=== PATIENT | female | born 1970 | race Caucasian/White ===

== ENCOUNTER → 2017-05-27 | Outpatient (CLI) | payer BC ==
--- NOTE | 2017-05-28 07:41 | MAMMOGRAPHY REPORT ---
BILATERAL DIGITAL SCREENING MAMMOGRAM TOMOSYNTHESIS WITH CAD: 05/27/2017 CLINICAL HISTORY: Routine screening. Patient has no complaints. TECHNIQUE: Breast tomosynthesis in addition to standard 2D mammography was performed. Current study was also evaluated with a Computer Aided Detection (CAD) system. COMPARISON: Comparison is made to exams dated: 05/08/2016 mammogram, 12/22/2013 mammogram, 10/15/2012 m ammogram, 07/19/2011 mammogram - [facility], and 06/16/2009. BREAST COMPOSITION: The tissue of both breasts is heterogeneously dense, which may obscure small mas ses. FINDINGS: The parenchymal pattern is unchanged. No developing mass, architectural distortion or clus ter of suspicious microcalcifications is seen in either breast. IMPRESSION: ACR BI-RADS CATEGORY 2: BENIGN There is no mammographic evidence of malignancy. A 1 year screening mammogram is recommended. The pa tient will receive written notification of the results. Approximately 10% of breast cancers are not detected with mammography. A negative mammographic report should not delay biopsy if a clinically suggestive mass is present. Alexa Moore M.D. ay/:05/27/2017 17:53:34 Casino Enforcement Agent: Sally COLMENARES)([place]), [facility] letter sent: Normal 1/2 BI-RADS Code: ACR BI-RADS Category 2: Benign
== END | disposition home or self-care (01) ==
LOC: C.MAMM 08:18
PROVIDERS: ATTEND Obstetrics & Gynecology
DX: Z12.31 Encounter for screening mammogram for malignant neoplasm of breast (principal)

== ENCOUNTER → 2018-02-12 | Outpatient (CLI) | payer BC | END | disposition home or self-care (01) | LOC: C.PAPS 12:20 | PROVIDERS: ATTEND Obstetrics & Gynecology | DX: Z01.419 Encounter for gynecological examination (general) (routine) without abnormal findings (principal) ==

== ENCOUNTER → 2018-03-21 | Outpatient (CLI) | payer BC ==
[2018-03-21 12:56] LABS: BASO % 0.6 %; BASO ABS # 0.04 K/uL (0-0.2); EOS % 5.5 %; EOS ABS # 0.34 K/uL (0-0.5); HEMATOCRIT 39.7 % (37-47); HEMOGLOBIN 13.2 g/dL (12.0-16.0); IG# 0.01 K/uL (0.00-0.02); LYMPH % 27.3 %; LYMPH ABS # 1.69 K/uL (1.2-3.4); MEAN CELL VOLUME 88.8 fL (80-100); MEAN CORPUSCULAR HEMOGLOBIN 29.5 pg (25-34); MEAN CORPUSCULAR HGB CONC 33.2 g/dl (32-36); MEAN PLATELET VOLUME 10.2 fL (7.4-10.4); MONO % 4.4 %; MONO ABS # 0.27 K/uL (0.11-0.59); NEUT ABS # 3.85 K/uL (1.4-6.5); PLATELET COUNT 268 K/uL (130-400); RED CELL DISTRIBUTION WIDTH CV 13.5 % (11.5-14.5); RED CELL DISTRIBUTION WIDTH SD 43.6 fL (36.4-46.3)
[2018-03-21 13:42] LABS: ALT/SGPT 17 U/L (12-78); AST/SGOT 17 U/L (15-37); BLOOD UREA NITROGEN 16 mg/dl (7-18); CALCIUM 8.7 mg/dl (8.5-10.1); CARBON DIOXIDE 28 mmol/L (21-32); CHOLESTEROL 143 mg/dl (0-200); CREATININE 0.87 mg/dl (0.60-1.20); GLUCOSE 81 mg/dl (70-99); POTASSIUM 3.7 mmol/L (3.5-5.1); SODIUM 140 mmol/L (136-145)
[2018-03-21 13:44] LABS: ALKALINE PHOSPHATASE 62 U/L (45-117); LDL CHOLESTEROL CALCULATED 63 mg/dl; TOTAL PROTEIN 7.7 gm/dl (6.4-8.2)
== END | disposition home or self-care (01) ==
LOC: C.LABPBG 07:44
PROVIDERS: ATTEND Internal Medicine
DX: Z00.00 Encounter for general adult medical examination without abnormal findings (principal); Z13.220 Encounter for screening for lipoid disorders; Z13.1 Encounter for screening for diabetes mellitus

== ENCOUNTER → 2018-05-28 | Outpatient (CLI) | payer BC ==
--- NOTE | 2018-05-29 08:09 | MAMMOGRAPHY REPORT ---
BILATERAL DIGITAL SCREENING MAMMOGRAM TOMOSYNTHESIS WITH CAD: 05/28/2018 CLINICAL HISTORY: Routine screening. Patient has no complaints. TECHNIQUE: The study was acquired using full field digital technology and interpreted from soft copy. Tomosynthesis (3D imaging) was done in the CC and MLO projections. A C-view reconstruction was then done. Current study was also evaluated with a Computer Aided Detection (CAD) system. COMPARISON: Comparison is made to exams dated: 05/27/2017 mammogram, 05/08/2016 mammogram, 12/22/2013 m ammogram, 10/15/2012 mammogram, 07/19/2011 mammogram - [facility], and 06/16/2009. BREAST COMPOSITION: The tissue of both breasts is heterogeneously dense, which may obscure small mass es. FINDINGS: There is a 9 mm asymmetry in the superior, posterior left breast on the MLO view that could represent normal overlapping tissue although additional spot compression tomosynthesis views and possible ultr asound are recommended. No other suspicious mass, architectural distortion or cluster of microcalcifications is seen. IMPRESSION: ACR BI-RADS CATEGORY 0: INCOMPLETE EVALUATION: NEED ADDITIONAL IMAGING EVALUATION The 9 mm nodular asymmetry in the superior, posterior left breast on the MLO view needs additional im aging evaluation. The patient will be called to schedule an appointment. Approximately 10% of breast cancers are not detected with mammography. A negative mammographic report should not delay biopsy if a clinically suggestive mass is present. Alexa Moore M.D. ay/:05/28/2018 12:55:48 [employer] Value Added Assessor: Yohana Boateng, [facility] letter sent: Addl Imaging 0 BI-RADS Code: ACR BI-RADS Category 0: Incomplete Evaluation: Need Additional Imaging Evaluation
== END | disposition home or self-care (01) ==
LOC: C.MAMM 08:12
PROVIDERS: ATTEND Obstetrics & Gynecology
DX: Z12.31 Encounter for screening mammogram for malignant neoplasm of breast (principal); N64.89 Other specified disorders of breast

== ENCOUNTER → 2018-06-06 | Outpatient (CLI) | payer BC ==
--- NOTE | 2018-06-06 15:40 | MAMMOGRAPHY REPORT ---
UNILATERAL LEFT DIGITAL DIAGNOSTIC MAMMOGRAM TOMOSYNTHESIS AND TARGETED LEFT ULTRASOUND: 06/06/2018 CLINICAL HISTORY: Callback from screening mammogram for left breast asymmetry. TECHNIQUE: The study was acquired using full field digital technology and interpreted from soft copy. Breast tomosynthesis in addition to standard 2D mammography was performed. Spot compression left CC and MLO 2D and tomosynthesis images were obtained. COMPARISON: Comparison is made to exams dated: 05/28/2018 mammogram, 05/27/2017 mammogram, 05/08/2016 m ammogram, 12/22/2013 mammogram, 10/15/2012 mammogram, and 07/19/2011 mammogram - [facility]ter. BREAST COMPOSITION: The tissue of left breast is heterogeneously dense, which may obscure small ashwini s. FINDINGS: The previously described asymmetry seen within the left superior breast on the MLO view effaces to a baseline appearance on the additional spot compression view. Normal fibroglandular tissue is seen in this region, without evidence of a mass, architectural distortion, or other suspicious finding. The asymmetry localized to the lateral breast based on the tomosynthesis localizer bar from the screenin g exam, although no corresponding abnormality is seen on the cc view. Targeted ultrasound was performed of the left breast in the region of the mammographic asymmetry in t he left upper outer quadrant superiorly. Sonographically normal tissue is seen in this region, witho ut evidence of a mass or other suspicious sonographic abnormality. IMPRESSION: ACR BI-RADS CATEGORY 2: BENIGN, ULTRASOUND ACR BI-RADS CATEGORY 2: BENIGN The left breast asymmetry effaces to a baseline appearance on the additional spot compression views, without corresponding suspicious sonographic abnormality evident. Findings are benign and compatible with normal fibroglandular tissue. There is no mammographic or sonographic evidence of malignancy. A 1 year screening mammogram is recommended.(06/07/2019) The patient has been verbally notified of t he results. Some breast cancers are not detected with mammography. A negative mammographic report should not yani y biopsy if a clinically suggestive mass is present. Mariah Samayoa M.D. /:06/06/2018 11:22:34 Bpo Specialist: RT Mathew(R)(M), [facility] letter sent: Normal 11/12 OVERALL STUDY BIRADS: 2 Benign
== END | disposition home or self-care (01) ==
LOC: C.MAMM 10:54
PROVIDERS: ATTEND Obstetrics & Gynecology
DX: N64.89 Other specified disorders of breast (principal)